=== PATIENT | female | born 1995 | race Caucasian/White ===

== ENCOUNTER 2017-07-02 11:27 | Emergency (ER) | payer BC ==
[2017-07-02] MEDS ORDERED: NS 0.9% 1000 ML* 1,000 ML IV ONE (12:16)
[2017-07-02 12:42] LABS: Hematocrit 44 % (35-47); Hemoglobin 14.5 g/dl (12.0-16.0); Mean Corpuscular HGB Conc 33 g/dl (31-36); Mean Corpuscular Hemoglobin 30 pg (27-31); Mean Corpuscular Volume 89 fL (80-97); Mean Platelet Volume 8 um3 (7.4-10.4); Red Blood Count 4.93 10^6/ul (4.0-5.4); Red Cell Distribution Width 13 % (10.5-15); White Blood Count 6.6 10^3/ul (3.5-10.8)
[2017-07-02 12:44] LABS: Urine Bilirubin Negative (Negative); Urine Glucose Negative (Negative); Urine Nitrite Negative (Negative)
--- NOTE | 2017-07-02 12:46 | ED ---
Progress - Progress Note Progress Note: Pelvic Exam: External Vulva: pink, moist, no lesions, no d/c Vaginal canal: pink, moist, no d/c Cervix: pink w/o lesions, nongravida os/cervix - non-friable, no d/c Negative CMT B/L Adnexal tenderness w/o palpable masses Cx's taken Pt tolerated well Course/Dx - Diagnoses Provider Diagnoses: Abdominal pain
[2017-07-02 13:04] LABS: ALT 14 U/L (7-52); AST 19 U/L (13-39); Albumin 4.4 g/dL (3.2-5.2); Alkaline Phosphatase 46 U/L (34-104); Anion Gap 8 mmol/L (2-11); BUN/Creatinine Ratio 14.5 (8-20); Blood Urea Nitrogen 9 mg/dL (6-24); C Reactive Protein 1.13 mg/L (< 5.00); CO2 Carbon Dioxide 25 mmol/L (22-32); Calcium 9.9 mg/dL (8.6-10.3); Chloride 105 mmol/L (101-111); EGFR African American 156.3 (>60); EGFR Non-African American 121.5 (>60); Globulin 2.7 g/dL (2-4); Glucose 73 mg/dL (70-100); Lipase 40 U/L (11.0-82.0); Sodium 138 mmol/L (133-145); Total Protein 7.1 g/dL (6.4-8.9)
--- NOTE | 2017-07-02 13:19 | RAD ---
HISTORY: Abdominal pain COMPARISONS: None VIEWS: Frontal views of the abdomen. FINDINGS: BOWEL: There is a nonspecific bowel gas pattern, with nondilated small bowel gas noted. CALCULI: There are no abnormal calculi. BONES AND SOFT TISSUES: There are no osseous abnormalities. OTHER FINDINGS: The lung bases are clear. There is no subphrenic gas. At IUD is noted. IMPRESSION: NONSPECIFIC BOWEL GAS PATTERN.
--- NOTE | 2017-07-02 14:52 | RAD ---
HISTORY: Lower abdominal pain COMPARISONS: February 14, 2016 TECHNIQUE: Multiple transverse and longitudinal ultrasound images were obtained of the pelvis using grayscale, color Doppler, and spectral Doppler imaging using the endovaginal transducer. FINDINGS: UTERUS: The uterus measures 6.5 x 2.8 x 4.5 cm. The uterus is normal in shape, size, contour, and echotexture. ENDOMETRIUM: The endometrial stripe is smooth. The endometrium measures 0.3 cm in thickness. An IUD is noted centrally within the endometrial cavity towards the fundus. CUL-DE-SAC: There is a small amount of simple fluid along the right ovary. This may be physiologic in a reproductive age female. RIGHT OVARY: The right ovary measures 3.6 x 1.6 x 2.2 cm. Multiple follicles are noted. Normal arterial and venous waveforms are identifiable within the ovary on spectral Doppler imaging. LEFT OVARY: The left ovary measures 3.1 x 5.9 x 3.4 cm. Multiple follicles are noted. Normal arterial and venous waveforms are identifiable within the ovary on spectral Doppler imaging. BLADDER: The bladder is not well visualized. OTHER: None IMPRESSION: 1. IUD. 2. SMALL AMOUNT OF FLUID WITHIN THE PELVIS. THIS MAY BE PHYSIOLOGIC WITHIN A REPRODUCTIVE AGE FEMALE. 3. NO SONOGRAPHIC FEATURES OF TORSION. PLEASE NOTE THAT PARTIAL OR INTERMITTENT TORSION MAY BE SONOGRAPHICALLY NORMAL.
[2017-07-02 15:44] VITALS: BP 123/70
[2017-07-02] MEDS ORDERED: Ketorolac INJ* 30 MG/ML 1 ML VIAL IV PUSH ONE (16:04)
--- NOTE | 2017-07-02 18:52 | ED ---
Kip Browning Angela, scribed for Juan Manuel Encinsa MD on 07/02/17 at 1152 . Abdominal Pain/Female - HPI Summary HPI Summary: This pt is a 22 y/o female presenting to [facility] c/o constant lower abd pain for 1 month. Pt reports an associated intermittent burning sensation in upper abd/ chest. She states her pain is always present but is waxing and waning. Currently sitting down, her pain is rated 3-4 out of 10 in severity. Her pain is aggravated with movement, ambulating, and eating. She additionally c/o nausea. Pt denies vomiting, fever, diarrhea. Pt denies having a bowel movement every day. She notes having vaginal discharge, which she states is usual for her. Pt reports her dad believes she has an ulcer. Pt is currently sexually active. LMP: pt is on Mirena (IUD) and doesn't get menstrual cycles, but it would've been last week. - History of Current Complaint Chief Complaint: EDAbdPain Stated Complaint: ABDOMINAL PAIN, NAUSEA Time Seen by Provider: 07/02/17 11:50 Hx Obtained From: Patient ?: No Onset/Duration: Lasting Weeks, Still Present Timing: Constant - abd pain Severity Initially: Moderate Severity Currently: Moderate Pain Intensity: 4 Pain Scale Used: 0-10 Numeric Location: Suprapubic Aggravating Factor(s): Food, Movement, Other: - ambulating Alleviating Factor(s): Nothing Associated Signs and Symptoms: Positive: Vaginal Discharge - usual for her, Nausea, Other:. Negative: Fever, Vomiting, Diarrhea - not every day bowel movements. Allergies/Adverse Reactions: Allergies Allergy/AdvReac Type Severity Reaction Status Date / Time Erythromycin Allergy Rash Verified 06/21/14 04:30 PMH/Surg Hx/FS Hx/Imm Hx Endocrine/Hematology History: Denies: Hx Diabetes Cardiovascular History: Denies: Hx Congestive Heart Failure, Hx Hypertension History: Denies: Hx Renal Disease Infectious Disease History: No Infectious Disease History: Denies: Traveled Outside the [place] in Last 30 Days - Family History Known Family History: Positive: Other - pt reports none Family History: R & n/C - Social History Alcohol Use: Occasionally Hx Substance Use: Yes Substance Use Type: Reports: Marijuana Hx Tobacco Use: No Smoking Status (MU): Never Smoked Tobacco Review of Systems Negative: Fever, Chills Eyes: Negative ENT: Negative Cardiovascular: Negative Gastrointestinal: Other - bowel movements not every day Positive: Abdominal Pain, Nausea, Other - burning sensation in upper abd. Negative: Vomiting, Diarrhea Positive: discharge - vaginal, usual per pt All Other Systems Reviewed And Are Negative: Yes Physical Exam - Summary Physical Exam Summary: VITAL SIGNS: Reviewed. GENERAL: Patient is a well-developed and nourished female who is lying comfortable in the stretcher. Patient is not in any acute respiratory distress. HEAD AND FACE: Normocephalic and atraumatic. EYES: PERRLA, EOMI x 2, No injected conjunctiva. EARS: Hearing grossly intact. Ear canals and tympanic membranes are WNL. MOUTH: Oropharynx within normal limits. NECK: Supple, trachea is midline, no adenopathy, no JVD. CHEST: Symmetric, no tenderness at palpation LUNGS: Clear to auscultation bilaterally. No wheezing or crackles. CVS: RRR, S1 and S2 present, no murmurs or gallops appreciated. ABDOMEN: Soft. There is a little bit of lower abdominal tenderness. No signs of distention. Positive bowel sounds. No rebound no guarding, and no masses palpated. No abdominal bruit or pulsations. EXTREMITIES: FROM in all major joints, no edema, no cyanosis or clubbing. NEURO: Alert and oriented x 3. No acute neurological deficits. Speech is normal. SKIN: Dry and warm Triage Information Reviewed: Yes Vital Signs On Initial Exam: Initial Vitals Temp Pulse Resp BP Pulse Ox 98.1 F 89 16 100/68 100 07/02/17 11:34 07/02/17 11:34 07/02/17 11:34 07/02/17 11:34 07/02/17 11:34 Vital Signs Reviewed: Yes Diagnostics - Vital Signs Vital Signs Temp Pulse Resp BP Pulse Ox 07/02/17 11:34 98.1 F 89 16 100/68 100 - Laboratory Lab Results: Lab Results 07/02/17 07/02/17 07/02/17 Range/Units 12:21 12:21 12:21 WBC 6.6 (3.5-10.8) 10^3/ul RBC 4.93 (4.0-5.4) 10^6/ul Hgb 14.5 (12.0-16.0) g/dl Hct 44 (35-47) % MCV 89 (80-97) fL MCH 30 (27-31) pg MCHC 33 (31-36) g/dl RDW 13 (10.5-15) % Plt Count 185 (150-450) 10^3/ul MPV 8 (7.4-10.4) um3 Neut % (Auto) 60.9 (38-83) % Lymph % (Auto) 29.5 (25-47) % Gray % (Auto) 9.0 (1-9) % Eos % (Auto) 0.4 (0-6) % Baso % (Auto) 0.2 (0-2) % Absolute Neuts (auto) 4.0 (1.5-7.7) 10^3/ul Absolute Lymphs (auto) 1.9 (1.0-4.8) 10^3/ul Absolute Monos (auto) 0.6 (0-0.8) 10^3/ul Absolute Eos (auto) 0 (0-0.6) 10^3/ul Absolute Basos (auto) 0 (0-0.2) 10^3/ul Absolute Nucleated RBC 0 10^3/ul Nucleated RBC % 0 Sodium 138 (133-145) mmol/L Potassium 4.0 (3.5-5.0) mmol/L Chloride 105 (101-111) mmol/L Carbon Dioxide 25 (22-32) mmol/L Anion Gap 8 (2-11) mmol/L BUN 9 (6-24) mg/dL Creatinine 0.62 (0.51-0.95) mg/dL Est GFR ( Amer) 156.3 (>60) Est GFR (Non-Af Amer) 121.5 (>60) BUN/Creatinine Ratio 14.5 (8-20) Glucose 73 (70-100) mg/dL Calcium 9.9 (8.6-10.3) mg/dL Total Bilirubin 0.80 (0.2-1.0) mg/dL AST 19 (13-39) U/L ALT 14 (7-52) U/L Alkaline Phosphatase 46 (34-104) U/L C-Reactive Protein 1.13 (< 5.00) mg/L Total Protein 7.1 (6.4-8.9) g/dL Albumin 4.4 (3.2-5.2) g/dL Globulin 2.7 (2-4) g/dL Albumin/Globulin Ratio 1.6 (1-3) Lipase 40 (11.0-82.0) U/L Beta HCG, Quant < 0.60 mIU/mL Urine Color Yellow Urine Appearance Cloudy Urine pH 8.0 (5-9) Ur Specific [place] 1.013 (1.010-1.030) Urine Protein Negative (Negative) Urine Ketones Trace H (Negative) Urine Blood Negative (Negative) Urine Nitrate Negative (Negative) Urine Bilirubin Negative (Negative) Urine Urobilinogen Negative (Negative) Ur Leukocyte Esterase Negative (Negative) Urine Glucose Negative (Negative) C.trachomatis (Amp Det) N.gonorrhoeae (Amp Det) T.vaginalis (Amp Det) 07/02/17 Range/Units 12:40 WBC (3.5-10.8) 10^3/ul RBC (4.0-5.4) 10^6/ul Hgb (12.0-16.0) g/dl Hct (35-47) % MCV (80-97) fL MCH (27-31) pg MCHC (31-36) g/dl RDW (10.5-15) % Plt Count (150-450) 10^3/ul MPV (7.4-10.4) um3 Neut % (Auto) (38-83) % Lymph % (Auto) (25-47) % Gray % (Auto) (1-9) % Eos % (Auto) (0-6) % Baso % (Auto) (0-2) % Absolute Neuts (auto) (1.5-7.7) 10^3/ul Absolute Lymphs (auto) (1.0-4.8) 10^3/ul Absolute Monos (auto) (0-0.8) 10^3/ul Absolute Eos (auto) (0-0.6) 10^3/ul Absolute Basos (auto) (0-0.2) 10^3/ul Absolute Nucleated RBC 10^3/ul Nucleated RBC % Sodium (133-145) mmol/L Potassium (3.5-5.0) mmol/L Chloride (101-111) mmol/L Carbon Dioxide (22-32) mmol/L Anion Gap (2-11) mmol/L BUN (6-24) mg/dL Creatinine (0.51-0.95) mg/dL Est GFR ( Amer) (>60) Est GFR (Non-Af Amer) (>60) BUN/Creatinine Ratio (8-20) Glucose (70-100) mg/dL Calcium (8.6-10.3) mg/dL Total Bilirubin (0.2-1.0) mg/dL AST (13-39) U/L ALT (7-52) U/L Alkaline Phosphatase (34-104) U/L C-Reactive Protein (< 5.00) mg/L Total Protein (6.4-8.9) g/dL Albumin (3.2-5.2) g/dL Globulin (2-4) g/dL Albumin/Globulin Ratio (1-3) Lipase (11.0-82.0) U/L Beta HCG, Quant mIU/mL Urine Color Urine Appearance Urine pH (5-9) Ur Specific [place] (1.010-1.030) Urine Protein (Negative) Urine Ketones (Negative) Urine Blood (Negative) Urine Nitrate (Negative) Urine Bilirubin (Negative) Urine Urobilinogen (Negative) Ur Leukocyte Esterase (Negative) Urine Glucose (Negative) C.trachomatis (Amp Det) Pending N.gonorrhoeae (Amp Det) Pending T.vaginalis (Amp Det) TNP Result Diagrams: 07/02/17 12:21 07/02/17 12:21 Lab Statement: Any lab studies that have been ordered have been reviewed, and results considered in the medical decision making process. - Radiology Abdomen XR Xray Interpretation: Positive (See Comments) - IMPRESSION: Nonspecific bowel gas pattern. ED physician has reviewed this radiology report and agrees. Radiology Interpretation Completed By: Radiologist - Ultrasound No standard instances Ultrasound Interpretation: No Acute Changes - Transvaginal US IMPRESSION: 1. IUD. 2. Small amount of fluid within the pelvis. This may be physiologic within a reproductive age female. 3. No sonographic features of torsion. Please note that partial or intermittent torsion may be sonographically normal. ED physician has reviewed this radiology report and agrees. Ultrasound Interpretation Completed By: Radiologist Abdominal Pain Fem Course/Dx - Course Course Of Treatment: This pt is a 22 y/o female presenting to [facility] c/o constant lower abd pain for 1 month. Pt reports an associated intermittent burning sensation in upper abd/chest. She states her pain is always present but is waxing and waning. Currently sitting down, her pain is rated 3-4 out of 10 in severity. Her pain is aggravated with movement, ambulating, and eating. She additionally c/o nausea. Pt denies vomiting, fever, diarrhea. Pt denies having a bowel movement every day. She notes having vaginal discharge, which she states is usual for her. Pt reports her dad believes she has an ulcer. Pt is currently sexually active. LMP: pt is on Mirena (IUD) and doesn't get menstrual cycles, but it would've been last week. Test results without any significant abnormalities. UA is negative. Abdomen XR is negative. Pelvic US shows 1. IUD. 2. Small amount of fluid within the pelvis. This may be physiologic within a reproductive age female. 3. No sonographic features of torsion. Please note that partial or intermittent torsion may be sonographically normal. At this point, I offered the pt a pelvic exam but she requested a female provider. I requested a pelvic exam from the physician office assistant receptionist, Maddy Erickson. She successfully did a pelvic exam. She reports no significant abnormalities, please see her note. STD testing is pending. I offered the pt a treatment for STD, however she declines. She will follow up the STD results with her PCP. Pt was given toradol for the pain and the pts symptoms significantly improved. She will be discharged home with follow up from her PCP. - Diagnoses Differential Diagnosis: Positive: Constipation, Ovarian Cyst, Urinary Tract Infection Provider Diagnoses: Abdominal pain Discharge - Discharge Plan Condition: Stable Disposition: HOME Patient Education Materials: Abdominal Pain (ED) Forms: *School Release Referrals: [facility] PHYSICIAN REFERRAL [Outside] Non Staff,Doctor [Primary Care Provider] - Additional Instructions: Please follow up with your primary care provider. RETURN TO THE ED FOR ANY WORSENING SYMPTOMS. The documentation as recorded by the Kip oreilly Angela accurately reflects the service I personally performed and the decisions made by me, Juan Manuel Encinas MD.
[2017-07-03 13:51] LABS: Trichomonas Source Endocervical (Negative)
== END 2017-07-02 16:31 | disposition home or self-care (01) ==
LOC: ED 11:27
DX: R10.30 Lower abdominal pain, unspecified (principal)
CPT/HCPCS: 36415; 74020; 76830; 80053; 81003; 83690; 84702; 85025; 86140; 87480; 87491; 87510; 87591; 87661; 96361; 96374; 99282; J1885